=== PATIENT | male | born 1995 | race African-American/Black ===

== ENCOUNTER 2023-03-14 12:05 | Emergency (ER) | payer OTHER ==
[~2023-03-14] VITALS: Ht 170.2 cm; Wt 58.0 kg
[2023-03-14 13:27] VITALS: TEMP 97.9
[2023-03-14] MEDS ORDERED: LEVE500T99 PO (13:34)
[2023-03-14] MEDS ORDERED: LevETIRAcetam 500 MG TABLET PO ONE (13:45)
[2023-03-14 13:56] LABS: BASOPHILS % (AUTO) 0.3 % (0.0-2.0); EOSINOPHILS % (AUTO) 0 % (1.0-6.0); HEMATOCRIT 39.3 % (41-53); HEMOGLOBIN 13.1 g/dL (13.5-17.5); LYMPHOCYTES # (AUTO) 0.4 K/uL (1.0-4.8); LYMPHOCYTES % (AUTO) 2.5 % (22.0-44.0); MEAN CORPUSCULAR HEMOGLOBIN 28.5 pg (26.0-34.0); MEAN CORPUSCULAR HGB CONC 33.3 G/dL (31.0-37.0); MEAN CORPUSCULAR VOLUME 86 fL (80-100); MONOCYTES # (AUTO) 1.2 K/uL (0.1-1.0); MONOCYTES % (AUTO) 7.6 % (2.0-9.0); NEUTROPHILS # (AUTO) 13.8 K/uL (1.8-7.7); PLATELET COUNT (AUTO) 221 K/uL (150-450); RED BLOOD CELL COUNT(AUTO) 4.59 MIL/uL (4.50-5.90); RED CELL DISTRIBUTION WIDTH 13.7 % (11.5-14.5); WHITE BLOOD COUNT (AUTO) 15.4 K/uL (4.5-11.0)
[2023-03-14 14:00] LABS: NEUTROPHILS % (AUTO) 89.6 % (40.0-70.0)
[2023-03-14 14:04] LABS: ANION GAP 10 mmol/L (8-16); CALCIUM, TOTAL 8.6 mg/dL (8.8-10.5); CARBON DIOXIDE 26 mmol/L (22-29); CHLORIDE 99 mmol/L (98-107); CREATININE 0.92 mg/dL (0.60-1.30); GLOMERULAR FILTR. RATE CALC > 60 mL/min (>60); GLUCOSE,RANDOM 114 mg/dL (70-110); POTASSIUM 3.6 mmol/L (3.5-5.1); SODIUM SERUM 135 mmol/L (136-145); UREA NITROGEN, BLOOD 5 mg/dL (7-18)
[2023-03-14 14:11] LABS: ALCOHOL, BLOOD (SERUM) < 3 mg/dL (0-10)
[2023-03-14] MEDS ORDERED: ACETAMINOPHEN 500 MG TABLET PO ONE (14:15)
[2023-03-14] MEDS ORDERED: LEVE500T20 PO (14:26)
[2023-03-14 15:50] VITALS: BP 107/59; PULSE 96; RESP 16
== END 2023-03-14 16:30 | disposition home or self-care (01) ==
LOC: EMS 12:22
DX: G40.909 Epilepsy, unspecified, not intractable, without status epilepticus (principal); F90.9 Attention-deficit hyperactivity disorder, unspecified type; F12.90 Cannabis use, unspecified, uncomplicated; F17.210 Nicotine dependence, cigarettes, uncomplicated; Z98.890 Other specified postprocedural states
CPT/HCPCS: 99283; 80048; 85025; 36415; G0480